=== PATIENT | female | born 1930 | race Caucasian/White ===

== ENCOUNTER 2017-03-17 03:40 | Inpatient (IN) | payer OTHER ==
[~2017-03-17] VITALS: Ht 149.9 cm; Wt 61.7 kg
[~2017-03-17 03:40] MED LIST: ALBUTEROL SULF8.5 GM IH; ATIVAN0.5 MG PO; AZATHIOPRINE50 MG PO; Advair 250/50 Diskus IH; BENTYL10 MG PO; CALCIUM 600 +1 EACH PO; COLAZAL PO; COLAZAL750 MG PO; CRESTOR40 MG PO; CYANOCOBALAM1000 MCG PO; Claritin,Alavart PO; DICYCLOMINE HCL10 MG PO; DuoNeb IH; FLONASE16 G1 BOTH NARES; Flonase BOTH NARES; IMURAN50 MG PO; Imodium PO; Imuran PO; KEFLEX500 MG PO; KLOR-CON20 MEQ PO; LASIX20 MG PO; LIPITOR80 MG PO; Lasix PO; Levaquin PO; Lipitor PO; METAXALONE800 MG PO; METOPROLOL TAR100 MG PO; NIFEDIPINE ER30 MG PO; NORCO 5/3251 TABLET PO; NORVASC10 MG PO; Norvasc PO; Oscal 500 w/Vitamin PO; PERCOCET 5/31 TABLET PO; PROAIR HFA8.5 GM IH; Protonix PO; Proventil,Ventolin H IH; RECLAST5 MG/100 M; TOPROL XL100 MG PO; TRAMADOL HCL50 MG PO; Toprol XL PO; VASOTEC20 MG PO; VASOTEC5 MG PO; VICODIN 5-3001 EACH PO; VITAMIN B12 PO; VITAMIN D1000 UNIT PO; VITAMIN D2000 INTUN PO; VITAMIN E400 UNIT PO; Vasotec PO; Vitamin D PO; XALATAN2.5 ML LEFT EYE; Xalatan 0.005% Ophth LEFT EYE; ZANTAC150 MG PO; ZOLOFT100 MG PO; ZYRTEC10 M2 PO; Zoloft PO; predniSONE PO
[2017-03-17 04:18] LABS: HEMATOCRIT 36.5 % (36.0-46.0); MCH 31.3 PG (29.0-34.0); MCHC 33.7 G/DL (30.0-36.0); MCV 92.9 FL (83-99); MEAN PLAT.VOLUME 12.6 uM^3 (9.5-12.4); PLATELET COUNT 139 K/uL (156-360); RED BLOOD COUNT 3.93 M/uL (3.80-5.20); WHITE BLOOD COUNT 7.7 K/uL (4.1-10.2)
[2017-03-17 04:29] LABS: CHLORIDE 99 mEq/L (99-109); POTASSIUM 2.9 mEq/L (3.7-5.4); SODIUM 139 mEq/L (136-147)
[2017-03-17 04:30] LABS: GLUCOSE 131 mg/dL (70-99)
[2017-03-17 04:32] LABS: ANION GAP 12 MEQ/L (2-14)
[2017-03-17 04:34] LABS: GFR ESTIMATE (CALCULATED) 45 mL/min/
[2017-03-17 04:35] LABS: UREA NITROGEN (BUN) 22 mg/dL (9-23)
[2017-03-17 05:00] LABS: TOTAL BILIRUBIN 0.6 mg/dL (0.0-1.0)
[2017-03-17 05:01] LABS: ALKALINE PHOSPHATASE 48 IU/L (3-129)
[2017-03-17 05:03] LABS: DIRECT BILIRUBIN 0.3 mg/dL (0.0-0.3)
[2017-03-17 05:04] LABS: LIPASE 50 U/L (1.0-51.0)
[2017-03-17 05:11] LABS: TROP-I INTERPRETATION NEGATIVE; TROPONIN-I < 0.01 ng/mL (0.0-0.30)
[2017-03-17] MEDS ORDERED: RANITIDINE HCL300 MG PO (06:22)
[2017-03-17 07:09] LABS: ADD MIUA? YES; BILIRUBIN NEGATIVE; BLOOD NEGATIVE; COLOR YELLOW ((YELLOW)); GLUCOSE (STRIP) NEGATIVE; KETONES NEGATIVE; LEUKOCYTES LARGE; NITRITE NEGATIVE; PROTEIN (STRIP) NEGATIVE; SPECIFIC GRAVITY 1.009 (1.000-1.030); UROBILINOGEN 0.2 MG/DL (0.2-1.0)
[2017-03-17 07:31] LABS: BACTERIA RARE /HPF; EPITHELIAL CELLS RARE /HPF; MUCUS TRACE /LPF; UCUL ADDED? YES
[2017-03-17 08:53] LABS: C DIFF TOXIN NEGATIVE (NEGATIVE)
[2017-03-17 08:55] LABS: PROBE CHECK PASS; SPECIMEN PROCESSING CONTROL PASS
[2017-03-17 10:20] LABS: CHLORIDE 101 mEq/L (99-109); POTASSIUM 3.3 mEq/L (3.7-5.4); SODIUM 139 mEq/L (136-147)
[2017-03-17 10:22] LABS: GLUCOSE 158 mg/dL (70-99)
[2017-03-17 10:23] LABS: ANION GAP 11 MEQ/L (2-14)
[2017-03-17 10:26] LABS: GFR ESTIMATE (CALCULATED) 45 mL/min/
[2017-03-17 10:27] LABS: UREA NITROGEN (BUN) 21 mg/dL (9-23)
[2017-03-17] MEDS ORDERED: HYGROTON25 MG PO (10:54)
[2017-03-17 15:19] VITALS: BP 168/95
[2017-03-17 19:41] VITALS: BP 140/98
[2017-03-17 23:08] VITALS: BP 106/58
[2017-03-18 04:01] VITALS: BP 128/60
[2017-03-18 06:13] LABS: EOSINOPHIL (%) 0.9 % (0-5); EOSINOPHIL COUNT 0.1 K/uL (0-0.3); HEMATOCRIT 35.7 % (36.0-46.0); IMMATURE GRANULOCYTE (%) 0.3 % (0.0-0.7); INSTRUMENT ABS NEUTROPHIL CT 4.5 K/uL; LYMPHOCYTE COUNT 1.2 K/uL (1.0-2.8); MCH 31.5 PG (29.0-34.0); MCHC 33.9 G/DL (30.0-36.0); MEAN PLAT.VOLUME 12.6 uM^3 (9.5-12.4); MONOCYTE COUNT 1.2 K/uL (0-0.8); NEUTROPHIL (%) 64.2 % (45-76); NEUTROPHIL COUNT 4.5 K/uL (1.8-6.4); PLATELET COUNT 129 K/uL (156-360); RBC DIS.WIDTH-CV 13.2 % (11.8-14.6); RBC DIS.WIDTH-SD 44.8 % (39-53); RED BLOOD COUNT 3.84 M/uL (3.80-5.20)
[2017-03-18 06:39] LABS: ANION GAP 12 MEQ/L (2-14); CHLORIDE 96 MEQ/L (99-109); GFR ESTIMATE (CALCULATED) 45 mL/min/; MAGNESIUM 1.8 mg/dl (1.3-2.7); POTASSIUM 3.3 MEQ/L (3.7-5.4); SAMPLE HEMOLYSIS CHECK 0; SAMPLE ICTERIC CHECK 0; SAMPLE LIPEMIA CHECK 0; SODIUM 138 MEQ/L (136-147); UREA NITROGEN (BUN) 22 mg/dL (9-23)
[2017-03-18 06:40] LABS: GLUCOSE 112 mg/dL (70-99)
[2017-03-18 07:19] VITALS: BP 145/67
[2017-03-18 10:53] LABS: INTERNAL CONTROL VALID? YES
[2017-03-18 11:00] VITALS: BP 141/65
[2017-03-18 15:02] VITALS: BP 146/64
[2017-03-18 19:41] VITALS: BP 130/60
[2017-03-18 23:30] VITALS: BP 126/62
[2017-03-19 03:29] VITALS: BP 131/64
[2017-03-19 06:56] LABS: ANION GAP 14 MEQ/L (2-14); CHLORIDE 96 MEQ/L (99-109); GFR ESTIMATE (CALCULATED) 41 mL/min/; GLUCOSE 118 mg/dL (70-99); POTASSIUM 3.9 MEQ/L (3.7-5.4); SAMPLE HEMOLYSIS CHECK 0; SAMPLE ICTERIC CHECK 0; SAMPLE LIPEMIA CHECK 0; SODIUM 139 MEQ/L (136-147); UREA NITROGEN (BUN) 27 mg/dL (9-23)
[2017-03-19 07:13] VITALS: BP 141/63
[2017-03-19 07:28] VITALS: BP 141/63
[2017-03-19 11:36] VITALS: BP 137/58
[2017-03-19 16:18] VITALS: BP 150/72
[2017-03-19 19:25] VITALS: BP 121/69
[2017-03-20] VITALS (7 sets, daily range): BP systolic 134–185; BP diastolic 62–98
[2017-03-20 06:32] LABS: EOSINOPHIL (%) 0 % (0-5); HEMATOCRIT 34.7 % (36.0-46.0); IMMATURE GRANULOCYTE (%) 0.3 % (0.0-0.7); INSTRUMENT ABS NEUTROPHIL CT 5.1 K/uL; LYMPHOCYTE COUNT 0.7 K/uL (1.0-2.8); MCH 31.6 PG (29.0-34.0); MCHC 33.7 G/DL (30.0-36.0); MCV 93.8 FL (83-99); MEAN PLAT.VOLUME 12.9 uM^3 (9.5-12.4); MONOCYTE (%) 3.8 % (3-12); MONOCYTE COUNT 0.2 K/uL (0-0.8); NEUTROPHIL (%) 84.8 % (45-76); NEUTROPHIL COUNT 5.1 K/uL (1.8-6.4); PLATELET COUNT 146 K/uL (156-360); RBC DIS.WIDTH-SD 44.6 % (39-53); WHITE BLOOD COUNT 6.1 K/uL (4.1-10.2)
[2017-03-20 07:02] LABS: ANION GAP 12 MEQ/L (2-14); CHLORIDE 96 MEQ/L (99-109); GFR ESTIMATE (CALCULATED) 38 mL/min/; GLUCOSE 161 mg/dL (70-99); POTASSIUM 3.6 MEQ/L (3.7-5.4); SAMPLE HEMOLYSIS CHECK 0; SAMPLE ICTERIC CHECK 0; SAMPLE LIPEMIA CHECK 0; SODIUM 136 MEQ/L (136-147); UREA NITROGEN (BUN) 36 mg/dL (9-23)
[2017-03-21 00:46] VITALS: BP 160/69
[2017-03-21 06:48] LABS: ANION GAP 10 MEQ/L (2-14); CHLORIDE 99 MEQ/L (99-109); GFR ESTIMATE (CALCULATED) 41 mL/min/; GLUCOSE 142 mg/dL (70-99); POTASSIUM 4.2 MEQ/L (3.7-5.4); SAMPLE HEMOLYSIS CHECK 0; SAMPLE ICTERIC CHECK 0; SAMPLE LIPEMIA CHECK 0; SODIUM 138 MEQ/L (136-147); UREA NITROGEN (BUN) 36 mg/dL (9-23)
[2017-03-21 07:18] VITALS: BP 184/77
[2017-03-21 15:13] VITALS: BP 112/63
[2017-03-21 17:32] LABS: HEMATOCRIT 33.4 % (36.0-46.0); MCH 31.2 PG (29.0-34.0); MCHC 32.9 G/DL (30.0-36.0); MCV 94.6 FL (83-99); MEAN PLAT.VOLUME 12.7 uM^3 (9.5-12.4); PLATELET COUNT 152 K/uL (156-360); RBC DIS.WIDTH-CV 12.9 % (11.8-14.6); RBC DIS.WIDTH-SD 44.4 % (39-53); RED BLOOD COUNT 3.53 M/uL (3.80-5.20); WHITE BLOOD COUNT 8.6 K/uL (4.1-10.2)
[2017-03-21 23:38] VITALS: BP 171/67
[2017-03-22 06:47] LABS: ANION GAP 10 MEQ/L (2-14); CHLORIDE 100 MEQ/L (99-109); GFR ESTIMATE (CALCULATED) 38 mL/min/; GLUCOSE 128 mg/dL (70-99); IRON 161 MCG/DL (35-150); SAMPLE HEMOLYSIS CHECK 0; SAMPLE ICTERIC CHECK 0; SAMPLE LIPEMIA CHECK 0; SODIUM 137 MEQ/L (136-147); UREA NITROGEN (BUN) 39 mg/dL (9-23)
[2017-03-22 07:40] VITALS: BP 177/85
[2017-03-22 08:05] LABS: FERRITIN 108 NG/ML (10-291)
[2017-03-22 16:13] VITALS: BP 154/66
[2017-03-22 23:49] VITALS: BP 144/66
[2017-03-23 07:09] LABS: ANION GAP 8 MEQ/L (2-14); CHLORIDE 104 MEQ/L (99-109); GFR ESTIMATE (CALCULATED) 50 mL/min/; GLUCOSE 117 mg/dL (70-99); POTASSIUM 4.3 MEQ/L (3.7-5.4); SAMPLE HEMOLYSIS CHECK 0; SAMPLE ICTERIC CHECK 0; SAMPLE LIPEMIA CHECK 0; SODIUM 139 MEQ/L (136-147); UREA NITROGEN (BUN) 33 mg/dL (9-23)
[2017-03-23 07:42] VITALS: BP 147/61
[2017-03-23] MEDS ORDERED: PROVENTIL HFA6.7 GM IH (08:07)
[2017-03-23] MEDS ORDERED: FLOVENT 11120 INHALA IH (08:07)
[2017-03-23] MEDS ORDERED: LOPERAMIDE2 MG PO (08:07)
[2017-03-23] MEDS ORDERED: METRONIDAZOLE500 MG PO (08:07)
[2017-03-23] MEDS ORDERED: AUGMENTIN875 MG PO (08:07)
[2017-03-23] MEDS ORDERED: PREDNISONE10 MG PO (08:07)
== END 2017-03-23 14:22 | disposition home health service (06) | DRG 194 ==
LOC: EME 03:40 → EDOF 05:45 → 5SOUTH 05:45 → ENRESERV 05:49 → 5SOUTH 14:36
PROVIDERS: Emergency Medicine; Internal Medicine; Internal Medicine Cardiovascular Disease; Physician Assistant Medical
DX: J15.4 Pneumonia due to other streptococci (principal); J44.1 Chronic obstructive pulmonary disease with (acute) exacerbation; K51.90 Ulcerative colitis, unspecified, without complications; N17.9 Acute kidney failure, unspecified; J44.0 Chronic obstructive pulmonary disease with (acute) lower respiratory infection; I35.0 Nonrheumatic aortic (valve) stenosis; I37.1 Nonrheumatic pulmonary valve insufficiency; I50.9 Heart failure, unspecified; I25.10 Atherosclerotic heart disease of native coronary artery without angina pectoris; E87.6 Hypokalemia; I27.20 Pulmonary hypertension, unspecified; F41.9 Anxiety disorder, unspecified; F32.9 Major depressive disorder, single episode, unspecified; K21.9 Gastro-esophageal reflux disease without esophagitis; M81.0 Age-related osteoporosis without current pathological fracture; I45.10 Unspecified right bundle-branch block; R19.7 Diarrhea, unspecified; R09.02 Hypoxemia; N18.3 Chronic kidney disease, stage 3 (moderate); M40.209 Unspecified kyphosis, site unspecified; E78.5 Hyperlipidemia, unspecified; A07.1 Giardiasis [lambliasis]; I13.0 Hypertensive heart and chronic kidney disease with heart failure and stage 1 through stage 4 chronic kidney disease, or unspecified chronic kidney disease; M19.90 Unspecified osteoarthritis, unspecified site; H40.9 Unspecified glaucoma; H50.9 Unspecified strabismus; K64.9 Unspecified hemorrhoids; K42.9 Umbilical hernia without obstruction or gangrene; H54.61 Unqualified visual loss, right eye, normal vision left eye; Z95.5 Presence of coronary angioplasty implant and graft; Z77.22 Contact with and (suspected) exposure to environmental tobacco smoke (acute) (chronic); Z87.891 Personal history of nicotine dependence; Z86.010 Personal history of colon polyps; Z82.5 Family history of asthma and other chronic lower respiratory diseases; Z79.899 Other long term (current) drug therapy
CPT/HCPCS: 71010; 71020; 71250; 80048; 80048 91; 80076; 81003; 82607; 82728; 82746; 83540; 83605; 83690; 83735; 83880; 84132 91; 84466; 84484; 85025; 85027; 87040; 87070; 87086; 87177; 87205; 87329; 87449; 87493; 87502; 87506; 93005; 93306; 94010; 94640; 94640 76; 94760; 94799; 99202; 99281; 99285; J0295; J0696; J1200; J1644; J1940; J1956; J2930; J3480; J7040; J7050; J7500; J7512

== ENCOUNTER 2017-06-18 04:37 | Observation (INO) | payer OTHER ==
[~2017-06-18] VITALS: Ht 149.9 cm; Wt 63.1 kg
[~2017-06-18 04:37] MED LIST changes: +AUGMENTIN875 MG PO; -AZATHIOPRINE50 MG PO; +FLOVENT 11120 INHALA IH; +HYGROTON25 MG PO; +LOPERAMIDE2 MG PO; +METRONIDAZOLE500 MG PO; +PREDNISONE10 MG PO; +PROVENTIL HFA6.7 GM IH; +RANITIDINE HCL300 MG PO
[2017-06-18 05:35] LABS: HEMOGLOBIN 11.4 G/DL (11.9-15.5); MCH 32.1 PG (29.0-34.0); MCHC 34.5 G/DL (30.0-36.0); PLATELET COUNT 137 K/uL (156-360); RBC DIS.WIDTH-CV 13.2 % (11.8-14.6); RBC DIS.WIDTH-SD 45.4 % (39-53); RED BLOOD COUNT 3.55 M/uL (3.80-5.20); WHITE BLOOD COUNT 12.8 K/uL (4.1-10.2)
[2017-06-18 05:43] LABS: ALBUMIN 4.2 g/dL (3.2-4.8)
[2017-06-18 05:44] LABS: CHLORIDE 99 mEq/L (99-109); POTASSIUM 3.5 mEq/L (3.7-5.4); SODIUM 135 mEq/L (136-147)
[2017-06-18 05:46] LABS: GLUCOSE 153 mg/dL (70-99); TOTAL PROTEIN 6.8 g/dL (6.4-8.3)
[2017-06-18 05:48] LABS: TOTAL BILIRUBIN 1.2 mg/dL (0.0-1.0)
[2017-06-18 05:49] LABS: ALKALINE PHOSPHATASE 34 IU/L (3-129)
[2017-06-18 05:50] LABS: CREATININE 0.9 mg/dL (0.6-1.3); GFR ESTIMATE (CALCULATED) > 59 mL/min/
[2017-06-18 05:51] LABS: AST (GOT) 16 IU/L (2-34); UREA NITROGEN (BUN) 11 mg/dL (9-23)
[2017-06-18 05:52] LABS: ALT (GPT) 4 IU/L (3-49)
[2017-06-18 05:55] LABS: TROP-I INTERPRETATION NEGATIVE; TROPONIN-I < 0.01 ng/mL (0.0-0.30)
[2017-06-18 09:41] VITALS: BP 191/72
[2017-06-18] MEDS ORDERED: IMODIUM A-D2 M2 PO (10:04)
[2017-06-18] MEDS ORDERED: K-DUR20 MEQ PO (10:08)
[2017-06-18] MEDS ORDERED: PROTONIX20 MG PO (10:08)
[2017-06-18] MEDS ORDERED: LOPRESSOR100 M1 PO (10:09)
[2017-06-18] MEDS ORDERED: TYLENOL EXTRA500 MG PO (10:09)
[2017-06-18 11:13] LABS: APPEARANCE CLEAR ((CLEAR)); BILIRUBIN NEGATIVE; BLOOD SMALL; COLOR YELLOW ((YELLOW)); GLUCOSE (STRIP) NEGATIVE; KETONES NEGATIVE; LEUKOCYTES MODERATE; NITRITE NEGATIVE; PROTEIN (STRIP) 30; UROBILINOGEN 0.2 MG/DL (0.2-1.0)
[2017-06-18 11:21] VITALS: BP 132/62
[2017-06-18 11:33] LABS: EPITHELIAL CELLS 1+ /HPF; MUCUS NONE SEEN /LPF; RED BLOOD CELLS 0-5 /HPF (0-5)
[2017-06-18 11:34] LABS: BACTERIA RARE /HPF; UCUL ADDED? YES
[2017-06-18 16:25] VITALS: BP 124/58
[2017-06-18 19:37] VITALS: BP 120/59
[2017-06-18 23:21] VITALS: BP 100/53
[2017-06-19 06:00] LABS: HEMATOCRIT 34.5 % (36.0-46.0); HEMOGLOBIN 11.9 G/DL (11.9-15.5); MCH 32.2 PG (29.0-34.0); MCHC 34.5 G/DL (30.0-36.0); MCV 93.2 FL (83-99); PLATELET COUNT 143 K/uL (156-360); RBC DIS.WIDTH-CV 13.3 % (11.8-14.6); RBC DIS.WIDTH-SD 45.8 % (39-53)
[2017-06-19 06:09] LABS: CHLORIDE 96 MEQ/L (99-109); CREATININE 1.3 MG/DL (0.6-1.3); GFR ESTIMATE (CALCULATED) 41 mL/min/; GLUCOSE 118 mg/dL (70-99); POTASSIUM 3.9 MEQ/L (3.7-5.4); SODIUM 138 MEQ/L (136-147); UREA NITROGEN (BUN) 15 mg/dL (9-23)
[2017-06-19 07:36] VITALS: BP 123/58
[2017-06-19 12:10] VITALS: BP 130/71
[2017-06-19] MEDS ORDERED: PREDNISONE20 MG PO (13:11)
[2017-06-19] MEDS ORDERED: CYANOCOBALAM1000 MCG PO (13:11)
[2017-06-19] MEDS ORDERED: AZITHROMYCIN500 M1 PO (13:11)
[2017-06-19] MEDS ORDERED: FUROSEMIDE40 MG PO (13:11)
== END 2017-06-19 16:03 | disposition home or self-care (01) ==
LOC: EME 04:37 → EDOF 08:16 → 5WEST 08:16 → ENRESERV 08:17 → 5WEST 09:28
PROVIDERS: Internal Medicine; Physician Assistant
DX: J96.01 Acute respiratory failure with hypoxia (principal); I27.81 Cor pulmonale (chronic); I27.20 Pulmonary hypertension, unspecified; J44.9 Chronic obstructive pulmonary disease, unspecified; E87.6 Hypokalemia; I07.1 Rheumatic tricuspid insufficiency; I35.0 Nonrheumatic aortic (valve) stenosis; I10 Essential (primary) hypertension; E78.5 Hyperlipidemia, unspecified; K51.90 Ulcerative colitis, unspecified, without complications; I25.10 Atherosclerotic heart disease of native coronary artery without angina pectoris; H40.9 Unspecified glaucoma; K21.9 Gastro-esophageal reflux disease without esophagitis; M81.0 Age-related osteoporosis without current pathological fracture; M19.90 Unspecified osteoarthritis, unspecified site; Z87.01 Personal history of pneumonia (recurrent); Z86.19 Personal history of other infectious and parasitic diseases; Z95.5 Presence of coronary angioplasty implant and graft; Z82.5 Family history of asthma and other chronic lower respiratory diseases; Z87.891 Personal history of nicotine dependence; Z88.5 Allergy status to narcotic agent
CPT/HCPCS: 71045; 71250; 80048; 80053; 81003; 83880; 84484; 85027; 87086; 93005; 94640; 94640 76; 94799; 99202; 99281; 99284; G0378; J1644; J1940; J7500; J7512

== ENCOUNTER 2017-08-09 12:58 | Inpatient (IN) | payer OTHER ==
[~2017-08-09] VITALS: Ht 149.9 cm; Wt 63.5 kg
[~2017-08-09 12:58] MED LIST changes: +AZITHROMYCIN500 M1 PO; +FUROSEMIDE40 MG PO; +IMODIUM A-D2 M2 PO; +LOPRESSOR100 M1 PO; +POTASSIUM CITR10 MEQ PO; +PREDNISONE20 MG PO; +PROTONIX20 MG PO; +TYLENOL EXTRA500 MG PO
[2017-08-09 13:55] LABS: HEMATOCRIT 32.6 % (36.0-46.0); HEMOGLOBIN 11.4 G/DL (11.9-15.5); MCH 31.9 PG (29.0-34.0); MCV 91.3 FL (83-99); PLATELET COUNT 170 K/uL (156-360); RBC DIS.WIDTH-CV 13.1 % (11.8-14.6); RBC DIS.WIDTH-SD 43.2 % (39-53); RED BLOOD COUNT 3.57 M/uL (3.80-5.20); WHITE BLOOD COUNT 9.4 K/uL (4.1-10.2)
[2017-08-09 14:04] LABS: CHLORIDE 101 mEq/L (99-109); POTASSIUM 3.4 mEq/L (3.7-5.4); SODIUM 141 mEq/L (136-147)
[2017-08-09 14:05] LABS: GLUCOSE 117 mg/dL (70-99)
[2017-08-09 14:09] LABS: GFR ESTIMATE (CALCULATED) 56 mL/min/
[2017-08-09 14:10] LABS: UREA NITROGEN (BUN) 15 mg/dL (9-23)
[2017-08-09 14:16] LABS: TROP-I INTERPRETATION NEGATIVE; TROPONIN-I < 0.01 ng/mL (0.0-0.30)
[2017-08-09 16:11] LABS: TROP-I INTERPRETATION NEGATIVE; TROPONIN-I 0.01 ng/mL (0.0-0.30)
[2017-08-09] MEDS ORDERED: FUROSEMIDE40 MG PO (18:29)
[2017-08-09] MEDS ORDERED: FLOVENT 11120 INHALA IH (18:29)
[2017-08-09] MEDS ORDERED: CYANOCOBALAM1000 MCG PO (18:30)
[2017-08-09] MEDS ORDERED: DUONEB 2.5-0.5 M3 ML AEROSOL (18:31)
[2017-08-09] MEDS ORDERED: VITAMIN D34000 UNIT PO (18:31)
[2017-08-09 19:04] LABS: TROP-I INTERPRETATION NEGATIVE; TROPONIN-I 0.02 ng/mL (0.0-0.30)
[2017-08-09 19:50] LABS: HDL CHOLESTEROL 68 MG/DL (Desirable>=50); LDL CHOLESTEROL 46 mg/dL (Desirable<100); NON-HDL CHOLESTEROL 63 mg/dL (Desirable<160); TOTAL CHOLESTEROL 131 mg/dL (Desirable<200); TRIGLYCERIDES 87 MG/DL (Normal: <150)
[2017-08-09 20:53] LABS: TROP-I INTERPRETATION NEGATIVE; TROPONIN-I 0.01 ng/mL (0.0-0.30)
[2017-08-09 21:11] VITALS: BP 133/61
[2017-08-09 23:29] VITALS: BP 115/63
[2017-08-10 01:14] LABS: TROP-I INTERPRETATION NEGATIVE; TROPONIN-I 0.01 ng/mL (0.0-0.30)
[2017-08-10 03:57] VITALS: BP 111/59
[2017-08-10 07:13] VITALS: BP 146/82
[2017-08-10 10:16] LABS: CHLORIDE 100 MEQ/L (99-109); CREATININE 1.1 MG/DL (0.6-1.3); GFR ESTIMATE (CALCULATED) 50 mL/min/; MAGNESIUM 1.9 mg/dl (1.3-2.7); POTASSIUM 3.6 MEQ/L (3.7-5.4); SODIUM 140 MEQ/L (136-147); UREA NITROGEN (BUN) 17 mg/dL (9-23)
[2017-08-10 10:17] LABS: GLUCOSE 223 mg/dL (70-99)
[2017-08-10 11:36] VITALS: BP 148/75
[2017-08-10 16:51] VITALS: BP 151/71
[2017-08-10 19:00] VITALS: BP 114/52
[2017-08-10 23:36] VITALS: BP 117/70
[2017-08-11 03:50] VITALS: BP 141/59
[2017-08-11 08:51] VITALS: BP 142/63
[2017-08-11] MEDS ORDERED: ELIQUIS5 MG PO (10:36)
[2017-08-11] MEDS ORDERED: PREDNISONE10 MG PO (10:36)
[2017-08-11] MEDS ORDERED: NITROSTAT0.4 MG SL (10:36)
[2017-08-11] MEDS ORDERED: ASPIR-LOW81 MG PO (10:36)
[2017-08-11] MEDS ORDERED: CARDIZEM CD120 M1 PO (10:36)
[2017-08-11 10:48] VITALS: BP 135/62
[2017-08-11 11:42] VITALS: BP 138/76
== END 2017-08-11 14:50 | disposition home or self-care (01) | DRG 308 ==
LOC: EME 12:58 → EDOF 18:10 → ENRESERV 18:11 → 4SOUTH 20:56
PROVIDERS: Hospitalist; Physician Assistant
DX: I48.0 Paroxysmal atrial fibrillation (principal); J96.01 Acute respiratory failure with hypoxia; J44.1 Chronic obstructive pulmonary disease with (acute) exacerbation; K51.90 Ulcerative colitis, unspecified, without complications; F33.9 Major depressive disorder, recurrent, unspecified; F41.9 Anxiety disorder, unspecified; E87.6 Hypokalemia; E78.5 Hyperlipidemia, unspecified; D64.9 Anemia, unspecified; I34.0 Nonrheumatic mitral (valve) insufficiency; I27.20 Pulmonary hypertension, unspecified; I36.1 Nonrheumatic tricuspid (valve) insufficiency; I35.2 Nonrheumatic aortic (valve) stenosis with insufficiency; I10 Essential (primary) hypertension; I25.10 Atherosclerotic heart disease of native coronary artery without angina pectoris; J98.01 Acute bronchospasm; K21.9 Gastro-esophageal reflux disease without esophagitis; M19.90 Unspecified osteoarthritis, unspecified site; M81.0 Age-related osteoporosis without current pathological fracture; Z77.22 Contact with and (suspected) exposure to environmental tobacco smoke (acute) (chronic); E55.9 Vitamin D deficiency, unspecified; E66.9 Obesity, unspecified; M40.209 Unspecified kyphosis, site unspecified; H40.9 Unspecified glaucoma; Z87.891 Personal history of nicotine dependence; Z79.82 Long term (current) use of aspirin; Z79.51 Long term (current) use of inhaled steroids; Z88.5 Allergy status to narcotic agent; Z90.49 Acquired absence of other specified parts of digestive tract; Z95.5 Presence of coronary angioplasty implant and graft; Z68.28 Body mass index [BMI] 28.0-28.9, adult; Z79.01 Long term (current) use of anticoagulants; Z80.9 Family history of malignant neoplasm, unspecified; Z82.49 Family history of ischemic heart disease and other diseases of the circulatory system
CPT/HCPCS: 36415; 71046; 71260; 80048; 80061; 80076; 83735; 83880; 84484; 85025; 85027; 85379; 93005; 94640; 94640 76; 94760; 94799; 99202; 99281; 99285; G0378; J1650; J2920; J7030; J7500